=== PATIENT | female | born 1995 | race Two or more races ===

== ENCOUNTER 2019-02-10 19:10 | Emergency (ER) | payer SELFPAY ==
[2019-02-10 19:15] VITALS: BP 130/68; PULSE 88; RESP 20; TEMP 99.4; O2SAT 98
--- NOTE | 2019-02-10 20:19 | ED PDOC ---
HPI: Psych/Substance Abuse Time Seen by Provider: 02/10/19 19:40 Chief Complaint (Nursing): Psychiatric Evaluation Chief Complaint (Provider): Suicidal ideation History Per: Patient, Other (friend) Current Symptoms Are (Timing): Gone Now Associated Symptoms: Suicidal Thoughts Additional History Per: Friend Additional Complaint(s): 23yo female with history of depression, brought to ER by friend for evaluation after she verbalized suicidal ideation. Per friend, patient had told her she "Wanted to end it all" after her relationship had ended. Currently the patient denies any suicidal or homicidal ideation. She reports compliance with Zoloft, which she takes for depression. She also denies any auditory or visual hallucinations. No additional complaints. Past Medical History Reviewed: Historical Data, Nursing Documentation, Vital Signs Vital Signs: Last Vital Signs Temp 99.4 F 02/10/19 19:12 Pulse 88 02/10/19 19:12 Resp 20 02/10/19 19:12 BP 130/68 02/10/19 19:12 Pulse Ox 98 02/10/19 19:12 Primary Care Provider: FAMILY PROVIDER,NO - Medical History PMH: Depression - Surgical History Other surgeries: wisdom teeth removal - Family History Family History: States: No Known Family Hx - Social History Current smoker - smoking cessation education provided: No Drugs: Cannabis (occasiona), Cocaine (occasional), Other (clenbuterol (for weight loss)) - Allergies Allergies/Adverse Reactions: Allergies Allergy/AdvReac Type Severity Reaction Status Date / Time No Known Allergies Allergy Verified 02/10/19 19:11 Review of Systems ROS Statement: Except As Marked, All Systems Reviewed And Found Negative Psych: Negative for: Suicidal ideation Physical Exam - Reviewed Nursing Documentation Reviewed: Yes Vital Signs Reviewed: Yes - Physical Exam Appears: Positive for: Non-toxic Head Exam: Positive for: ATRAUMATIC, NORMAL INSPECTION, NORMOCEPHALIC Skin: Positive for: Normal Color Eye Exam: Positive for: Normal appearance Neck: Positive for: Supple Cardiovascular/Chest: Positive for: Regular Rate, Rhythm. Negative for: Tachycardia Respiratory: Positive for: Normal Breath Sounds. Negative for: Respiratory Distress Neurological/Psych: Positive for: Awake, Alert, Normal Tone, Oriented (x 3), Mood/Affect (calm, depressed mood) - ECG O2 Sat by Pulse Oximetry: 98 (RA) Pulse Ox Interpretation: Normal Medical Decision Making Medical Decision Making: Impression: Suicidal ideation Differential: Depression, adjustment disorder Plan: -- Crisis evaluation 1:1 observation started for patient safety 2042 Patient seen and evaluated by body worker Osiel, who spoke with Dr. Cardona Per Dr. Cardona, patient stable for discharge home; diagnosis: Adjustment Disor eric Scribe Attestation: Documented by Concepción Baldwin acting as a scribe for Li Wesley MD. Provider Scribe Attestation: All medical record entries made by the Scribe were at my direction and personally dictated by me. I have reviewed the chart and agree that the record accurately reflects my personal performance of the history, physical exam, medical decision making, and the department course for this patient. I have also personally directed, reviewed, and agree with the discharge instructions and disposition. Disposition - Clinical Impression Clinical Impression: Adjustment disorder - Disposition Disposition: Routine/Home Disposition Time: 20:43 Condition: STABLE Additional Instructions: PLEASE FOLLOWUP WITH YOUR DOCTOR IN 2-3 DAYS FOR REEVALUATION Instructions: Adjustment Disorder Forms: [email or web address] (Armenian)
== END 2019-02-10 21:29 | disposition home or self-care (01) ==
LOC: H.ER 19:10
DX: F43.20 Adjustment disorder, unspecified (principal)